=== PATIENT | female | born 1955 | race Caucasian/White ===

== ENCOUNTER 2020-01-30 02:57 | Emergency (ER) | payer MEDICAID ==
[~2020-01-30] VITALS: Ht 157.5 cm; Wt 53.5 kg
[2020-01-30 03:05] VITALS: BP_SYST 192
[2020-01-30] MEDS ORDERED: CEPHALEXIN 125 MG/5 ML, 100 ML BTL PO ONE (04:00)
[2020-01-30 04:26] LABS: BILIRUBIN,URINE 1+ (NEGATIVE); BLOOD, URINE 3+ (NEGATIVE); CLARITY/URINE CLEAR (CLEAR); COLOR,URINE YELLOW (YELLOW); GLUCOSE,URINE NEGATIVE (NEGATIVE); KETONES,URINE NEGATIVE (NEGATIVE); LEUKOCYTE ESTERASE ,URINE 2+ (NEGATIVE); NITRITE, URINE NEGATIVE (NEGATIVE); PROTEIN URINE 2+ (NEGATIVE); UROBILINOGEN,URINE 0.2 (0.2-1.0)
[2020-01-30 04:33] VITALS: BP_SYST 141
[2020-01-30 04:33] LABS: BACTERIA,URINE FEW /HPF (None Seen); RBC,URINE 20-50 /HPF (0-3); WBC,URINE >100 /HPF (0-3)
[2020-01-30] MEDS ORDERED: CEPHALEXIN 250 MG/5 ML, 100 ML BTL ONE (04:38)
[2020-01-30] MEDS ORDERED: CEPHALEXIN 125 MG/5 ML, 100 ML BTL ONE (04:38)
== END 2020-01-30 04:33 | disposition home or self-care (01) ==
LOC: SED 02:57
DX: N39.0 Urinary tract infection, site not specified (principal); R31.9 Hematuria, unspecified
CPT/HCPCS: 81000-TC; 87086; 99283

== ENCOUNTER 2020-08-08 08:43 | Emergency (ER) | payer MEDICAID ==
[~2020-08-08] VITALS: Ht 154.9 cm; Wt 49.4 kg
--- NOTE | 2020-08-08 08:55 | NUR ---
Patient to ER bed 5 to gown for evaluation. Side rails up.
[2020-08-08 08:56] VITALS: BP_SYST 185
--- NOTE | 2020-08-08 09:00 | NUR ---
Pt walked in to ER with c/o urinary frequency and urgency x1 day, denies pain, n/v or fever at this time. V/S stable, no distress noted.
--- NOTE | 2020-08-08 09:05 | NUR ---
ER Dr. Izaguirre at bedside examining patient.
[2020-08-08 09:39] LABS: BILIRUBIN,URINE NEGATIVE (NEGATIVE); BLOOD, URINE 3+ (NEGATIVE); COLOR,URINE YELLOW (YELLOW); GLUCOSE,URINE NEGATIVE (NEGATIVE); KETONES,URINE NEGATIVE (NEGATIVE); LEUKOCYTE ESTERASE ,URINE 2+ (NEGATIVE); NITRITE, URINE NEGATIVE (NEGATIVE); PH,URINE 6.5 (5.0-8.0); PROTEIN URINE 1+ (NEGATIVE); UROBILINOGEN,URINE 0.2 (0.2-1.0)
[2020-08-08 09:54] LABS: CLARITY/URINE HAZY (CLEAR)
[2020-08-08 10:05] LABS: RBC,URINE 20-50 /HPF (0-3); WBC,URINE 20-50 /HPF (0-3)
[2020-08-08 10:06] LABS: BACTERIA,URINE MODERATE /HPF (None Seen)
[2020-08-08] MEDS ORDERED: CEPH250S PO (10:16)
[2020-08-08 10:21] VITALS: BP_SYST 185
--- NOTE | 2020-08-08 10:22 | NUR ---
Patient given written and verbal discharge instructions and verbalizes understanding. ER MD discussed with patient the results and treatment provided. Patient in stable condition. ID arm band removed. Rx of Keflex given. Patient educated on pain management and to follow up with PMD. Pain Scale 0. Opportunity for questions provided and answered. Medication side effect fact sheet provided.
== END 2020-08-08 10:22 | disposition home or self-care (01) ==
LOC: SED 08:43
DX: N30.90 Cystitis, unspecified without hematuria (principal)
CPT/HCPCS: 81000-TC; 87086; 99283